=== PATIENT | female | born 1975 | race Two or more races ===

== ENCOUNTER → 2024-09-17 | Outpatient (CLI) | payer MEDICAID, SELFPAY ==
--- NOTE | 2024-09-17 11:45 | XR_ITS ---
Examination: Screening digital mammography, bilateral Computer aided detection 3-D breast Tomosynthesis, bilateral Date and time of exam: September 17, 2024 1111 hours Comparison June 15, 2015 Indication: Screening Technique: Nonmagnified MLO, CC views of the breasts to been obtained, reconstructed from 3-D Tomosynthesis images. R2 computer aided detection program utilized for evaluation of suspicious masses and/or abnormal calcifications. 3-D Tomosynthesis images obtained. Findings: The breasts are heterogeneously dense, which may obscure small masses Benign calcifications. No interval suspicious masses Impression: BI-RADS category II: Benign Findings. Recommend 1 year follow-up mammogram.
== END | disposition home or self-care (01) ==
LOC: CDIM 10:59
PROVIDERS: Referring Provider Internal Medicine; Visit Provider Internal Medicine
DX: Z12.31 Encounter for screening mammogram for malignant neoplasm of breast (principal); R92.323 Mammographic fibroglandular density, bilateral breasts; R92.1 Mammographic calcification found on diagnostic imaging of breast
CPT/HCPCS: 77063; 77067

== ENCOUNTER → 2025-01-03 | Outpatient (CLI) | payer MEDICAID, SELFPAY ==
--- NOTE | 2025-01-03 16:00 | XR_ITS ---
Examination: Pelvic ultrasound, transabdominal, complete Technique: Transabdominal ultrasound of the pelvis performed using grayscale imaging Date and time of exam: January 03, 2025, 1609 hrs. Indications: Pelvic pain beginning several months ago. Findings: Uterus 11.5 cm endometrial stripe 10 mm. No uterine mass or intrauterine gestation Right ovary 2.8 cm arterial flow. Left ovary 2.6 cm arterial flow Impression: No discrete uterine mass, no intrauterine gestation No adnexal mass
== END | disposition home or self-care (01) ==
DX: N92.6 Irregular menstruation, unspecified (principal)
CPT/HCPCS: 76856

== ENCOUNTER 2025-03-27 09:10 | Day surgery (SDC) | payer MEDICAID, SELFPAY ==
[2025-03-26 10:49] VITALS: BMI 27.7
[2025-03-27] VITALS (11 sets, daily range): BP systolic 115–149; BP diastolic 72–95; PULSE 59–69; RESP 10–20; TEMP 36.3–36.7; O2SAT 95–99; BMI 25.4
[2025-03-27] MEDS: RINGERS LACTATED 500 ML 500 ML 20 ML IV (11:23)
[2025-03-27] MEDS: fentaNYL CIT INJ 50 mCg/ML AMP 2ML (ASD USE ONLY) IVP (11:26)
[2025-03-27] MEDS: MIDAZOLAM INJ 1 MG/ML VIAL 2 ML (ASD USE ONLY) 2 MG IVP (11:28)
== END 2025-03-27 12:33 | disposition home or self-care (01) ==
PROVIDERS: PCP Family Medicine; Referring Provider Internal Medicine Gastroenterology; Visit Provider Internal Medicine Gastroenterology
PROC: 0DBE8ZX Excision of Large Intestine, Via Natural or Artificial Opening Endoscopic, Diagnostic (ICD-10-PCS; CPT 45380; principal; 2025-03-27 10:30)
DX: K52.9 Noninfective gastroenteritis and colitis, unspecified (principal); K64.8 Other hemorrhoids; K57.30 Diverticulosis of large intestine without perforation or abscess without bleeding; E88.810 Metabolic syndrome
CPT/HCPCS: 45380; A4649; J1200; J2250; J3010; J7120